=== PATIENT | female | born 1935 | race Caucasian/White ===

== ENCOUNTER → 2018-06-24 09:15 | Outpatient (CLI) | payer MEDICARE, OTHER, SELFPAY ==
--- NOTE | 2018-06-24 | DI.MG.S_ITS ---
BILATERAL DIGITAL SCREENING MAMMOGRAM 3D/2D WITH CAD: 06/24/2018 CLINICAL: Routine screening. Family history of breast cancer. Comparison is made to exams dated: 06/04/2017 mammogram, 02/12/2016 mammogram, and 02/09/2015 mammogram - [facility]. The tissue of both breasts is heterogeneously dense. This may lower the sensitivity of mammography. Current study was also evaluated with a Computer Aided Detection (CAD) system. No significant masses, calcifications, or other findings are seen in either breast. There has been no significant interval change. IMPRESSION: NEGATIVE There is no mammographic evidence of malignancy. A 1 year screening mammogram is recommended. This exam was interpreted at Station ID: [id number]. NOTE: For mammograms, a report in lay terms will be sent to the patient. Approximately 15% of breast malignancies will not be visualized mammographically. In the management of a palpable breast mass, a negative mammogram must not discourage biopsy of a clinically suspicious lesion. Electronically Signed By: Marlene valenzuela/scott:06/24/2018 10:13:16 letter sent: Normal Exam ACR BI-RADS Category 1: Negative 3341F
== END ==
PROVIDERS: PCP Family Medicine; Visit Provider Family Medicine
DX: Z12.31 Encounter for screening mammogram for malignant neoplasm of breast (principal); Z80.3 Family history of malignant neoplasm of breast
CPT/HCPCS: 77063; 77067

== ENCOUNTER → 2018-07-10 11:54 | Outpatient (REF) | payer MEDICARE, OTHER, SELFPAY ==
[2018-07-10 12:00] LABS: INR 2.4 (0.9-1.3); Prothrombin Time 28.3 SECONDS (10.1-12.7)
== END ==
LOC: LAB 11:54
PROVIDERS: PCP Family Medicine; Visit Provider Family Medicine
DX: Z79.01 Long term (current) use of anticoagulants (principal)
CPT/HCPCS: 85610

== ENCOUNTER → 2018-08-25 12:05 | Outpatient (ROUT) | payer MEDICARE, OTHER, SELFPAY ==
[2018-08-25 12:18] LABS: INR 3.2 (0.9-1.3); Prothrombin Time 38.4 SECONDS (10.1-12.7)
== END ==
PROVIDERS: PCP Family Medicine; Visit Provider Family Medicine
DX: Z79.01 Long term (current) use of anticoagulants (principal)
CPT/HCPCS: 85610

== ENCOUNTER → 2018-09-08 10:15 | Outpatient (ROUT) | payer MEDICARE, OTHER, SELFPAY ==
[2018-09-08 10:39] LABS: INR 2.6 (0.9-1.3)
== END ==
PROVIDERS: PCP Family Medicine; Visit Provider Student in an Organized Health Care Education/Training Program
DX: Z79.01 Long term (current) use of anticoagulants (principal)
CPT/HCPCS: 85610

== ENCOUNTER → 2018-10-13 10:54 | Outpatient (ROUT) | payer MEDICARE, OTHER, SELFPAY ==
[2018-10-13 11:49] LABS: INR 2.5 (0.9-1.3); Prothrombin Time 29.4 SECONDS (10.1-12.7)
== END ==
PROVIDERS: Visit Provider Student in an Organized Health Care Education/Training Program
DX: I48.1 Persistent atrial fibrillation (principal)
CPT/HCPCS: 85610

== ENCOUNTER → 2018-12-04 15:09 | Outpatient (CLI) | payer MEDICARE, OTHER, SELFPAY | PROVIDERS: Visit Provider Student in an Organized Health Care Education/Training Program | DX: Z78.0 Asymptomatic menopausal state (principal); Z90.722 Acquired absence of ovaries, bilateral | CPT/HCPCS: 77080 ==

== ENCOUNTER → 2019-08-04 10:36 | Outpatient (ROUT) | payer MEDICARE, OTHER, SELFPAY ==
[2019-08-04 10:46] LABS: INR 3.3 (0.9-1.3); Prothrombin Time 37.7 SECONDS (10.1-12.7)
== END ==
PROVIDERS: Visit Provider Student in an Organized Health Care Education/Training Program
DX: Z79.01 Long term (current) use of anticoagulants (principal)
CPT/HCPCS: 85610

== ENCOUNTER → 2019-08-18 11:23 | Outpatient (ROUT) | payer MEDICARE, OTHER, SELFPAY ==
[2019-08-18 11:32] LABS: INR 3.4 (0.9-1.3)
== END ==
PROVIDERS: Visit Provider Student in an Organized Health Care Education/Training Program
DX: Z79.01 Long term (current) use of anticoagulants (principal)
CPT/HCPCS: 85610

== ENCOUNTER → 2019-09-01 10:38 | Outpatient (ROUT) | payer MEDICARE, OTHER, SELFPAY ==
[2019-09-01 11:49] LABS: INR 2.5 (0.9-1.3); Prothrombin Time 28.2 SECONDS (10.1-12.7)
== END ==
PROVIDERS: Visit Provider Student in an Organized Health Care Education/Training Program
DX: Z79.01 Long term (current) use of anticoagulants (principal)
CPT/HCPCS: 85610

== ENCOUNTER → 2019-09-30 11:52 | Outpatient (ROUT) | payer MEDICARE, OTHER, SELFPAY ==
[2019-09-30 12:06] LABS: INR 2.5 (0.9-1.3); Prothrombin Time 28.9 SECONDS (10.1-12.7)
== END ==
PROVIDERS: Visit Provider Student in an Organized Health Care Education/Training Program
DX: I48.91 Unspecified atrial fibrillation (principal); Z79.01 Long term (current) use of anticoagulants
CPT/HCPCS: 85610

== ENCOUNTER → 2019-10-28 11:50 | Outpatient (ROUT) | payer MEDICARE, OTHER, SELFPAY ==
[2019-10-28 12:04] LABS: INR 2.7 (0.9-1.3); Prothrombin Time 30.9 SECONDS (10.1-12.7)
== END ==
PROVIDERS: Visit Provider Student in an Organized Health Care Education/Training Program
DX: Z79.01 Long term (current) use of anticoagulants (principal)
CPT/HCPCS: 85610

== ENCOUNTER → 2019-11-16 16:18 | Outpatient (CLI) | payer MEDICARE, OTHER, SELFPAY ==
--- NOTE | 2019-11-16 16:37 | DI.MG.S_ITS ---
Patient Name: WILLIAMS MICHAEL date: 1935 Sex: F Attending Physician: Timmy Indications: Date: 11/16/2019 16:33 At the request of: IRVING JOSE Procedure: MM screening mammo BI BILATERAL DIGITAL SCREENING MAMMOGRAM 3D/2D WITH CAD: 11/16/2019 CLINICAL: Routine screening. Family history of breast cancer. Comparison is made to exams dated: 06/24/2018 mammogram, 06/04/2017 mammogram, and 02/12/2016 mammogram - [facility]. The tissue of both breasts is heterogeneously dense. This may lower the sensitivity of mammography. Current study was also evaluated with a Computer Aided Detection (CAD) system. No significant masses, calcifications, or other findings are seen in either breast. There has been no significant interval change. IMPRESSION: NEGATIVE There is no mammographic evidence of malignancy. A 1 year screening mammogram is recommended. This exam was interpreted at Station ID: [id number]. NOTE: For mammograms, a report in lay terms will be sent to the patient. Approximately 15% of breast malignancies will not be visualized mammographically. In the management of a palpable breast mass, a negative mammogram must not discourage biopsy of a clinically suspicious lesion. Electronically Signed By: Marlene valenzuela/scott:11/16/2019 16:45:56 letter sent: Normal Exam ACR BI-RADS Category 1: Negative 3341F
== END ==
PROVIDERS: Referring Provider Student in an Organized Health Care Education/Training Program; Visit Provider Student in an Organized Health Care Education/Training Program
DX: Z12.31 Encounter for screening mammogram for malignant neoplasm of breast (principal); Z80.3 Family history of malignant neoplasm of breast
CPT/HCPCS: 77063; 77067

== ENCOUNTER → 2019-11-26 09:54 | Outpatient (ROUT) | payer MEDICARE, OTHER, SELFPAY ==
[2019-11-26 10:18] LABS: INR 2.5 (0.9-1.3); Prothrombin Time 28.1 SECONDS (10.1-12.7)
== END ==
PROVIDERS: Visit Provider Student in an Organized Health Care Education/Training Program
DX: Z79.01 Long term (current) use of anticoagulants (principal)
CPT/HCPCS: 85610

== ENCOUNTER → 2019-12-27 10:50 | Outpatient (ROUT) | payer MEDICARE, OTHER, SELFPAY ==
[2019-12-27 11:17] LABS: INR 2.7 (0.9-1.3); Prothrombin Time 30.4 SECONDS (10.1-12.7)
== END ==
PROVIDERS: Visit Provider Student in an Organized Health Care Education/Training Program
DX: Z79.01 Long term (current) use of anticoagulants (principal)
CPT/HCPCS: 85610

== ENCOUNTER → 2020-07-10 10:30 | Outpatient (CLI) | payer MEDICARE, OTHER, SELFPAY ==
[2020-07-10 11:22] LABS: INR 2.1 (0.9-1.3); Prothrombin Time 24.5 SECONDS (10.1-12.7)
== END ==
PROVIDERS: PCP Student in an Organized Health Care Education/Training Program; Referring Provider Student in an Organized Health Care Education/Training Program; Visit Provider Student in an Organized Health Care Education/Training Program
DX: Z79.01 Long term (current) use of anticoagulants (principal); I48.91 Unspecified atrial fibrillation
CPT/HCPCS: 36415; 85610

== ENCOUNTER → 2020-08-08 11:55 | Outpatient (ROUT) | payer MEDICARE, OTHER, SELFPAY ==
[2020-08-08 12:26] LABS: INR 2.8 (0.9-1.3); Prothrombin Time 31.6 SECONDS (10.1-12.7)
== END ==
PROVIDERS: PCP Student in an Organized Health Care Education/Training Program; Visit Provider Student in an Organized Health Care Education/Training Program
DX: Z79.01 Long term (current) use of anticoagulants (principal)
CPT/HCPCS: 85610

== ENCOUNTER → 2020-09-06 09:28 | Outpatient (CLI) | payer MEDICARE, OTHER, SELFPAY ==
[2020-09-14 13:40] LABS: INR 2.4 (0.9-1.3); Prothrombin Time 27.5 SECONDS (10.1-12.7)
== END ==
PROVIDERS: PCP Student in an Organized Health Care Education/Training Program; Referring Provider Student in an Organized Health Care Education/Training Program; Visit Provider Student in an Organized Health Care Education/Training Program
DX: Z78.0 Asymptomatic menopausal state (principal); Z90.722 Acquired absence of ovaries, bilateral; Z82.62 Family history of osteoporosis
CPT/HCPCS: 77080; 85610

== ENCOUNTER → 2020-10-17 11:23 | Outpatient (ROUT) | payer MEDICARE, OTHER, SELFPAY ==
[2020-10-17 11:59] LABS: Prothrombin Time 34.8 SECONDS (10.1-12.7)
== END ==
PROVIDERS: PCP Student in an Organized Health Care Education/Training Program; Visit Provider Student in an Organized Health Care Education/Training Program
DX: Z79.01 Long term (current) use of anticoagulants (principal); I48.91 Unspecified atrial fibrillation
CPT/HCPCS: 85610

== ENCOUNTER → 2020-10-31 18:13 | Outpatient (CLI) | payer MEDICARE, OTHER, SELFPAY ==
--- NOTE | 2020-10-31 | DI.RAD.S_ITS ---
PROCEDURE: XR ANKLE RT MIN 3V INDICATIONS: RIGHT ANKLE PAIN TECHNIQUE: 3 views of the ankle were acquired. COMPARISON: [facility], CR, XR TIBIA FIBULA RT 2V, 10/31/2020, 18:14. FINDINGS: Bones: Arthritic changes moderately severe at the right ankle. There also is a minimally displaced fracture involving the distal fibular metadiaphyseal junction. No tibial fracture is identified. Prominent overlying soft tissue swelling. No dislocations. Ankle mortise is normally aligned. No suspicious bony lesions. Soft tissues: No tibiotalar joint effusion. Achilles tendon appears normal. IMPRESSION: Minimally displaced distal fibular metadiaphyseal junction fracture, with overlying soft tissue swelling. 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 Dictated by: Donavon Lacy M.D. on 11/01/2020 at 10:46 Approved by: Donavon Lacy M.D. on 11/01/2020 at 10:48
--- NOTE | 2020-10-31 | DI.RAD.S_ITS ---
PROCEDURE: XR TIBIA FUBULA RT 2V INDICATIONS: pain TECHNIQUE: 2 views of the tibia and fibula were acquired. COMPARISON: None. FINDINGS: Bones: No fractures or dislocations. No suspicious bony lesions. Soft tissues: No suspicious soft tissue calcifications or masses. IMPRESSION: Normal for age, source of current right calf region pain symptoms is not seen. Dictated by: Donavon Lacy M.D. on 11/01/2020 at 10:46 Approved by: Donavon Lacy M.D. on 11/01/2020 at 10:46
== END ==
PROVIDERS: PCP Student in an Organized Health Care Education/Training Program; Referring Provider Student in an Organized Health Care Education/Training Program; Visit Provider Student in an Organized Health Care Education/Training Program
DX: S89.301A Unspecified physeal fracture of lower end of right fibula, initial encounter for closed fracture (principal)
CPT/HCPCS: 73590; 73610

== ENCOUNTER → 2020-11-01 09:24 | Outpatient (CLI) | payer MEDICARE, OTHER, SELFPAY ==
[2020-11-01 10:57] LABS: D Dimer 930 ng/mL (<230)
== END ==
PROVIDERS: PCP Student in an Organized Health Care Education/Training Program; Referring Provider Student in an Organized Health Care Education/Training Program; Visit Provider Student in an Organized Health Care Education/Training Program
DX: M25.571 Pain in right ankle and joints of right foot (principal)
CPT/HCPCS: 36415; 85379

== ENCOUNTER → 2020-11-14 11:35 | Outpatient (ROUT) | payer MEDICARE, OTHER, SELFPAY ==
[2020-11-14 11:56] LABS: INR 2.7 (0.9-1.3); Prothrombin Time 30.5 SECONDS (10.1-12.7)
[2020-11-14 11:59] LABS: D Dimer 859 ng/mL (<230)
== END ==
PROVIDERS: PCP Student in an Organized Health Care Education/Training Program; Visit Provider Student in an Organized Health Care Education/Training Program
DX: I48.91 Unspecified atrial fibrillation (principal); Z79.01 Long term (current) use of anticoagulants; R79.89 Other specified abnormal findings of blood chemistry
CPT/HCPCS: 85379; 85610

== ENCOUNTER → 2020-11-22 17:10 | Outpatient (CLI) | payer MEDICARE, OTHER, SELFPAY ==
[2020-11-22 18:11] LABS: D Dimer 894 ng/mL (<230)
[2020-11-22 18:19] LABS: BUN Creatinine Ratio 24.3 (6-22); Blood Urea Nitrogen 18 mg/dL (7-17); Calcium 9.7 mg/dL (8.4-10.2); Carbon Dioxide 36 mmol/L (22-32); Chloride 92 mmol/L (98-107); Estimated Glomerular Filt Rate > 60.0 mL/min (>60); Glucose 83 mg/dL (80-110); HEMOLYSIS < 15 (0-50); Potassium 3.7 mmol/L (3.4-5.1); Sodium 132 mmol/L (137-145)
== END ==
PROVIDERS: PCP Student in an Organized Health Care Education/Training Program; Referring Provider Student in an Organized Health Care Education/Training Program; Visit Provider Student in an Organized Health Care Education/Training Program
DX: E87.6 Hypokalemia (principal); R79.89 Other specified abnormal findings of blood chemistry
CPT/HCPCS: 36415; 80048; 85379

== ENCOUNTER → 2020-12-06 12:12 | Outpatient (ROUT) | payer MEDICARE, OTHER, SELFPAY ==
[2020-12-06 12:24] LABS: D Dimer 917 ng/mL (<230)
== END ==
PROVIDERS: PCP Student in an Organized Health Care Education/Training Program; Visit Provider Student in an Organized Health Care Education/Training Program
DX: R79.89 Other specified abnormal findings of blood chemistry (principal)
CPT/HCPCS: 85379

== ENCOUNTER → 2020-12-13 11:55 | Outpatient (ROUT) | payer MEDICARE, OTHER, SELFPAY ==
[2020-12-13 12:07] LABS: INR 3.5 (0.9-1.3); Prothrombin Time 40.6 SECONDS (10.1-12.7)
== END ==
PROVIDERS: PCP Student in an Organized Health Care Education/Training Program; Visit Provider Student in an Organized Health Care Education/Training Program
DX: I48.91 Unspecified atrial fibrillation (principal); Z79.01 Long term (current) use of anticoagulants
CPT/HCPCS: 85610

== ENCOUNTER → 2020-12-22 11:37 | Outpatient (CLI) | payer MEDICARE, OTHER, SELFPAY ==
[2020-12-22 17:05] LABS: Vitamin D 25 Hydroxy (D3) 81.1 ng/mL (30.0-100.0)
== END ==
PROVIDERS: PCP Student in an Organized Health Care Education/Training Program; Referring Provider Physician Assistant Medical; Visit Provider Physician Assistant Medical
DX: S82.201A Unspecified fracture of shaft of right tibia, initial encounter for closed fracture (principal)
CPT/HCPCS: 36415; 82306

== ENCOUNTER → 2020-12-26 12:12 | Outpatient (ROUT) | payer MEDICARE, OTHER, SELFPAY ==
[2020-12-26 12:19] LABS: INR 3.2 (0.9-1.3); Prothrombin Time 37.1 SECONDS (10.1-12.7)
[2020-12-26 12:22] LABS: D Dimer 1035 ng/mL (<230)
== END ==
PROVIDERS: PCP Student in an Organized Health Care Education/Training Program; Visit Provider Student in an Organized Health Care Education/Training Program
DX: R79.89 Other specified abnormal findings of blood chemistry (principal)
CPT/HCPCS: 85379; 85610

== ENCOUNTER → 2021-01-23 10:35 | Outpatient (ROUT) | payer MEDICARE, OTHER, SELFPAY ==
[2021-01-23 10:42] LABS: INR 2.2 (0.9-1.3); Prothrombin Time 25.6 SECONDS (10.1-12.7)
[2021-01-23 10:45] LABS: D Dimer 1008 ng/mL (<230)
== END ==
PROVIDERS: PCP Student in an Organized Health Care Education/Training Program; Visit Provider Student in an Organized Health Care Education/Training Program
DX: R79.89 Other specified abnormal findings of blood chemistry (principal)
CPT/HCPCS: 85379; 85610

== ENCOUNTER → 2021-07-11 11:42 | Outpatient (ROUT) | payer MEDICARE, OTHER, SELFPAY ==
[2021-07-11 11:59] LABS: INR 2.5 (0.9-1.3); Prothrombin Time 29.5 SECONDS (10.1-12.7)
[2021-07-25 11:52] LABS: INR 2.6 (0.9-1.3)
== END ==
PROVIDERS: PCP Student in an Organized Health Care Education/Training Program; Visit Provider Student in an Organized Health Care Education/Training Program
DX: I48.91 Unspecified atrial fibrillation (principal); Z79.01 Long term (current) use of anticoagulants
CPT/HCPCS: 85610

== ENCOUNTER → 2021-07-25 11:53 | Outpatient (CLI) | payer MEDICARE, OTHER, SELFPAY | PROVIDERS: PCP Student in an Organized Health Care Education/Training Program; Referring Provider Student in an Organized Health Care Education/Training Program; Visit Provider Student in an Organized Health Care Education/Training Program | DX: I48.91 Unspecified atrial fibrillation (principal); Z79.01 Long term (current) use of anticoagulants | CPT/HCPCS: 85610 ==

== ENCOUNTER → 2021-08-07 09:02 | Outpatient (CLI) | payer MEDICARE, OTHER, SELFPAY ==
--- NOTE | 2021-08-07 | DI.RAD.S_ITS ---
PROCEDURE: XR ANKLE RT MIN 3V INDICATIONS: Post-traumatic osteoarthritis, right ankle and foot TECHNIQUE: 3 views of the ankle were acquired. COMPARISON: [facility], CR, XR ANKLE 3+ VIEWS RIGHT, 01/23/2021, 15:14. [facility], CR, XR ANKLE RT MIN 3V, 10/31/2020, 18:14. FINDINGS: Bones: Prior distal fibular fractures identified. While some bridging callus formation is present, overall nonunion is noted. Arthritic changes are noted at the tibiotalar joint space as well as the midfoot. Soft tissues: No tibiotalar joint effusion. Achilles tendon appears normal. IMPRESSION: Midfoot and tibiotalar joint space osteoarthritic change. Nonunion of distal fibular diaphyseal fracture. Dictated by: Kathy Downey M.D. on 08/07/2021 at 12:59 Approved by: Kathy Downey M.D. on 08/07/2021 at 13:01
== END ==
PROVIDERS: PCP Student in an Organized Health Care Education/Training Program
DX: S86.311A Strain of muscle(s) and tendon(s) of peroneal muscle group at lower leg level, right leg, initial encounter (principal); S82.61XK Displaced fracture of lateral malleolus of right fibula, subsequent encounter for closed fracture with nonunion; M19.171 Post-traumatic osteoarthritis, right ankle and foot
CPT/HCPCS: 73610

== ENCOUNTER → 2021-08-10 11:59 | Outpatient (ROUT) | payer MEDICARE, OTHER, SELFPAY ==
[2021-08-10 12:08] LABS: INR 2.3 (0.9-1.3); Prothrombin Time 26.3 SECONDS (10.1-12.7)
== END ==
PROVIDERS: PCP Student in an Organized Health Care Education/Training Program; Visit Provider Student in an Organized Health Care Education/Training Program
DX: I48.91 Unspecified atrial fibrillation (principal); Z79.01 Long term (current) use of anticoagulants
CPT/HCPCS: 85610

== ENCOUNTER → 2021-09-14 15:44 | Outpatient (ROUT) | payer MEDICARE, OTHER, SELFPAY ==
[2021-09-14 16:35] LABS: INR 2.2 (0.9-1.3); Prothrombin Time 25.3 SECONDS (10.1-12.7)
== END ==
PROVIDERS: PCP Student in an Organized Health Care Education/Training Program; Visit Provider Family Medicine
DX: I48.91 Unspecified atrial fibrillation (principal); Z79.01 Long term (current) use of anticoagulants
CPT/HCPCS: 85610

== ENCOUNTER → 2021-10-11 12:03 | Outpatient (ROUT) | payer MEDICARE, OTHER, SELFPAY ==
[2021-10-11 12:18] LABS: INR 2.5 (0.9-1.3); Prothrombin Time 28.5 SECONDS (10.1-12.7)
== END ==
PROVIDERS: PCP Student in an Organized Health Care Education/Training Program; Visit Provider Internal Medicine
DX: I48.91 Unspecified atrial fibrillation (principal); Z79.01 Long term (current) use of anticoagulants
CPT/HCPCS: 85610

== ENCOUNTER → 2021-11-15 11:41 | Outpatient (ROUT) | payer MEDICARE, OTHER, SELFPAY ==
[2021-11-15 11:58] LABS: INR 2.6 (0.9-1.3); Prothrombin Time 29.6 SECONDS (10.1-12.7)
== END ==
PROVIDERS: PCP Student in an Organized Health Care Education/Training Program; Visit Provider Family Medicine
DX: I48.91 Unspecified atrial fibrillation (principal)
CPT/HCPCS: 85610

== ENCOUNTER → 2021-12-19 11:14 | Outpatient (ROUT) | payer MEDICARE, OTHER, SELFPAY ==
[2021-12-19 11:38] LABS: INR 2.8 (0.9-1.3); Prothrombin Time 32.7 SECONDS (10.1-12.7)
== END ==
PROVIDERS: PCP Student in an Organized Health Care Education/Training Program; Visit Provider Family Medicine
DX: I48.91 Unspecified atrial fibrillation (principal)
CPT/HCPCS: 85610

== ENCOUNTER → 2022-07-10 09:42 | Outpatient (ROUT) | payer MEDICARE, OTHER, SELFPAY ==
[2022-07-10 10:44] LABS: INR 2.6 (0.9-1.3); Prothrombin Time 30.7 SECONDS (10.1-12.7)
== END ==
PROVIDERS: PCP Student in an Organized Health Care Education/Training Program; Visit Provider Family Medicine
DX: I48.91 Unspecified atrial fibrillation (principal)
CPT/HCPCS: 85610

== ENCOUNTER → 2022-08-09 12:26 | Outpatient (ROUT) | payer MEDICARE, OTHER, SELFPAY ==
[2022-08-09 12:33] LABS: INR 2.8 (0.9-1.3); Prothrombin Time 32.6 SECONDS (10.1-12.7)
== END ==
PROVIDERS: PCP Student in an Organized Health Care Education/Training Program; Visit Provider Family Medicine
DX: Z79.01 Long term (current) use of anticoagulants (principal)
CPT/HCPCS: 85610

== ENCOUNTER → 2022-09-12 11:58 | Outpatient (ROUT) | payer MEDICARE, OTHER, SELFPAY ==
[2022-09-12 12:06] LABS: Prothrombin Time 34.8 SECONDS (10.1-12.7)
== END ==
PROVIDERS: PCP Student in an Organized Health Care Education/Training Program; Visit Provider Family Medicine
DX: Z79.01 Long term (current) use of anticoagulants (principal); I48.91 Unspecified atrial fibrillation
CPT/HCPCS: 85610

== ENCOUNTER → 2022-09-23 15:12 | Outpatient (ROUT) | payer MEDICARE, OTHER, SELFPAY ==
[2022-09-23 15:19] LABS: INR 2.5 (0.9-1.3); Prothrombin Time 28.7 SECONDS (10.1-12.7)
== END ==
PROVIDERS: PCP Student in an Organized Health Care Education/Training Program; Visit Provider Family Medicine
DX: I48.91 Unspecified atrial fibrillation (principal)
CPT/HCPCS: 85610

== ENCOUNTER → 2022-10-01 12:12 | Outpatient (ROUT) | payer MEDICARE, OTHER, SELFPAY ==
[2022-10-01 12:27] LABS: INR 2.9 (0.9-1.3); Prothrombin Time 33.2 SECONDS (10.1-12.7)
== END ==
PROVIDERS: PCP Student in an Organized Health Care Education/Training Program; Visit Provider Family Medicine
DX: I48.91 Unspecified atrial fibrillation (principal)
CPT/HCPCS: 85610

== ENCOUNTER → 2022-10-18 14:17 | Outpatient (CLI) | payer MEDICARE, OTHER, SELFPAY ==
--- NOTE | 2022-10-18 | DI.RAD.S_ITS ---
Bone Density Report Name: WILLIAMS MICHAEL Age: 87 Sex: Female Ethnicity: White Date of : 1935 Indication: postmenopausal; screening for osteoporosis; Referring Provider: LISA CASPER Study: Bone densitometry was performed. Exam Date: October 18, 2022 Accession number: [id number] Bone Density: Region BMD T-score Z-score Classification AP Spine(L2, L3, L4) 1.348 2.4 5.4 Normal Femoral Neck (Left) 0.773 -0.7 1.8 Normal Total Hip (Left) 0.958 0.1 2.5 Normal Femoral Neck (Right) 0.765 -0.8 1.8 Normal Total Hip (Right) 0.956 0.1 2.4 Normal Total Hip Mean 0.957 0.1 2.5 Normal World Health Organization criteria for BMD impression classify patients as: Normal (T-score at or above -1.0), Osteopenia (T-score between -1.0 and -2.5), or Osteoporosis (T-score at or below -2.5). 10-year Fracture Risk: FRAX not reported because: All T-scores for Spine Total, Hip Total, Femoral Neck at or above -1.0 Impression: The patient has normal bone mass. Discussion: BONE DENSITY IS ABOVE THE MINIMUM DESIRABLE LEVEL AT ALL SKELETAL SITES TESTED. This patient's bone mineral density is above the minimum desirable level (T-score -1.0 or better) at all sites measured. The patient should follow a healthful lifestyle (good nutrition with adequate calcium and vitamin D, and appropriate weight-bearing exercise). Follow-Up: Consider repeating this study in 5 years or sooner if there is some new clinical indication. Reported by: DALIA CLINTON M.D. on 10/18/2022 2:58:00 PM.
== END ==
PROVIDERS: PCP Registered Nurse; Referring Provider Registered Nurse; Visit Provider Registered Nurse
DX: M80.08XA Age-related osteoporosis with current pathological fracture, vertebra(e), initial encounter for fracture (principal); M80.061D Age-related osteoporosis with current pathological fracture, right lower leg, subsequent encounter for fracture with routine healing; Z78.0 Asymptomatic menopausal state; Z90.710 Acquired absence of both cervix and uterus
CPT/HCPCS: 77080

== ENCOUNTER → 2022-11-04 12:29 | Outpatient (ROUT) | payer MEDICARE, OTHER, SELFPAY ==
[2022-11-04 12:43] LABS: INR 2.5 (0.9-1.3); Prothrombin Time 29.1 SECONDS (10.1-12.7)
== END ==
PROVIDERS: PCP Registered Nurse; Visit Provider Family Medicine
DX: Z79.01 Long term (current) use of anticoagulants (principal); I48.19 Other persistent atrial fibrillation
CPT/HCPCS: 85610

== ENCOUNTER → 2022-12-02 10:39 | Outpatient (ROUT) | payer MEDICARE, OTHER, SELFPAY ==
[2022-12-02 10:50] LABS: INR 2.9 (0.9-1.3); Prothrombin Time 33.8 SECONDS (10.1-12.7)
== END ==
PROVIDERS: PCP Registered Nurse; Visit Provider Family Medicine
DX: I48.19 Other persistent atrial fibrillation (principal)
CPT/HCPCS: 85610

== ENCOUNTER → 2023-07-30 15:24 | Outpatient (ROUT) | payer MEDICARE, OTHER, SELFPAY ==
[2023-07-30 15:41] LABS: INR 2.1 (0.9-1.3); Prothrombin Time 24.8 SECONDS (9.4-12.5)
== END ==
PROVIDERS: PCP Registered Nurse; Visit Provider Family Medicine
DX: Z79.01 Long term (current) use of anticoagulants (principal)
CPT/HCPCS: 85610

== ENCOUNTER → 2023-08-29 12:24 | Outpatient (ROUT) | payer MEDICARE, OTHER, SELFPAY ==
[2023-08-29 12:33] LABS: INR 2.7 (0.9-1.3); Prothrombin Time 31.2 SECONDS (9.4-12.5)
== END ==
PROVIDERS: PCP Registered Nurse; Visit Provider Registered Nurse
DX: R23.3 Spontaneous ecchymoses (principal); I48.11 Longstanding persistent atrial fibrillation
CPT/HCPCS: 85610

== ENCOUNTER → 2023-09-30 14:48 | Outpatient (ROUT) | payer MEDICARE, OTHER, SELFPAY ==
[2023-09-30 15:08] LABS: INR 2.7 (0.9-1.3); Prothrombin Time 31.4 SECONDS (9.4-12.5)
== END ==
PROVIDERS: PCP Registered Nurse; Visit Provider Registered Nurse
DX: R23.3 Spontaneous ecchymoses (principal); I48.11 Longstanding persistent atrial fibrillation
CPT/HCPCS: 85610

== ENCOUNTER → 2023-11-07 10:40 | Outpatient (ROUT) | payer MEDICARE, OTHER, SELFPAY ==
[2023-11-07 10:53] LABS: INR 2.5 (0.9-1.3); Prothrombin Time 29.3 SECONDS (9.4-12.5)
== END ==
PROVIDERS: PCP Registered Nurse; Visit Provider Registered Nurse
DX: R23.3 Spontaneous ecchymoses (principal); I48.11 Longstanding persistent atrial fibrillation
CPT/HCPCS: 85610

== ENCOUNTER → 2023-11-14 12:14 | Outpatient (CLI) | payer MEDICARE, OTHER, SELFPAY ==
--- NOTE | 2023-11-14 12:16 | DI.RAD.S_ITS ---
PROCEDURE: XR ANKLE LT MIN 3V INDICATIONS: Sprain of other ligament of left ankle, initial encounter TECHNIQUE: 3 views of the ankle were acquired. COMPARISON: [facility], CR, XR ANKLE RT MIN 3V, 08/07/2021, 8:58. [facility], CR, XR ANKLE RT MIN 3V, 10/31/2020, 18:14. FINDINGS: Bones: Significant disarticulation of the hindfoot. Ankle mortise is maintained. No displaced fracture. Soft tissues: No tibiotalar joint effusion. Achilles tendon appears normal. 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 No acute abnormality otherwise. Dictated by: Lex Moser M.D. on 11/16/2023 at 8:18 Approved by: Lex Moser M.D. on 11/16/2023 at 8:19
[2023-11-14 13:08] LABS: Add Manual Diff / Slide Review NO; Basophils Absolute Auto 0 /uL (0-100); Basophils Percent Auto 0.5 % (0-2); Eosinophils Absolute Auto 100 /uL (0-450); Eosinophils Percent Auto 1.1 % (2-4); Hematocrit 43.5 % (36-46); Hemoglobin 15.1 g/dL (12.0-16.0); Lymphocytes Absolute Auto 1200 /uL (1100-4500); Lymphocytes Percent Auto 18.5 % (25-40); Mean Corpuscular HGB Conc 34.7 % (30-36); Mean Corpuscular Hemoglobin 34.2 PG (26-34); Mean Corpuscular Volume 98.6 fL (80-100); Monocytes Absolute Auto 500 /uL (0-900); Monocytes Percent Auto 8.3 % (3-14); Neutrophils Absolute Auto 4700 /uL (1500-7000); Neutrophils Percent Auto 71.6 % (50-75); Platelet Count 200 X10^3/uL (150-400); Red Blood Cell Count 4.41 X10^6/uL (4.0-5.2); Red Cell Distribution Width 13.4 % (11.6-14.8); White Blood Cell Count 6.6 X10^3/uL (4.5-11.0)
== END ==
PROVIDERS: PCP Registered Nurse; Referring Provider Registered Nurse; Visit Provider Registered Nurse
DX: D75.89 Other specified diseases of blood and blood-forming organs (principal); S93.492A Sprain of other ligament of left ankle, initial encounter
CPT/HCPCS: 36415; 73610; 85025

== ENCOUNTER → 2023-12-17 11:16 | Outpatient (ROUT) | payer MEDICARE, OTHER, SELFPAY ==
[2023-12-17 11:30] LABS: INR 2.9 (0.9-1.3); Prothrombin Time 33.2 SECONDS (9.4-12.5)
== END ==
PROVIDERS: PCP Registered Nurse; Visit Provider Registered Nurse
DX: I48.11 Longstanding persistent atrial fibrillation (principal); R23.3 Spontaneous ecchymoses
CPT/HCPCS: 85610

== ENCOUNTER → 2024-06-24 09:28 | Outpatient (ROUT) | payer MEDICARE, OTHER, SELFPAY ==
[2024-06-24 09:40] LABS: Prothrombin Time 33.6 SECONDS (9.4-12.5)
== END ==
PROVIDERS: PCP Registered Nurse; Visit Provider Registered Nurse
DX: R23.3 Spontaneous ecchymoses (principal); I48.11 Longstanding persistent atrial fibrillation
CPT/HCPCS: 85610

== ENCOUNTER → 2024-07-05 15:26 | Outpatient (ROUT) | payer MEDICARE, OTHER, SELFPAY ==
[2024-07-05 15:54] LABS: INR 2.5 (0.9-1.3); Prothrombin Time 27.3 SECONDS (9.4-12.5)
== END ==
PROVIDERS: PCP Registered Nurse; Visit Provider Registered Nurse
DX: R23.3 Spontaneous ecchymoses (principal); I48.11 Longstanding persistent atrial fibrillation
CPT/HCPCS: 85610

== ENCOUNTER → 2024-08-04 12:21 | Outpatient (ROUT) | payer MEDICARE, OTHER, SELFPAY ==
[2024-08-04 12:33] LABS: INR 2.3 (0.9-1.3); Prothrombin Time 25.5 SECONDS (9.4-12.5)
== END ==
PROVIDERS: PCP Registered Nurse; Visit Provider Registered Nurse
DX: R23.3 Spontaneous ecchymoses (principal); I48.11 Longstanding persistent atrial fibrillation
CPT/HCPCS: 85610

== ENCOUNTER → 2024-12-10 16:19 | Outpatient (ROUT) | payer MEDICARE, OTHER, SELFPAY ==
[2024-12-10 16:35] LABS: INR 2.1 (0.9-1.3); Prothrombin Time 23.9 SECONDS (9.4-12.5)
== END ==
LOC: LAB 16:19
PROVIDERS: PCP Registered Nurse; Visit Provider Registered Nurse
DX: I48.11 Longstanding persistent atrial fibrillation (principal); Z79.01 Long term (current) use of anticoagulants
CPT/HCPCS: 85610